=== PATIENT | female | born 1980 | race Caucasian/White ===

== ENCOUNTER 2020-01-24 19:34 | Emergency (ER) | payer MEDICAID ==
[~2020-01-24] VITALS: Ht 152.4 cm; Wt 70.3 kg
[~2020-01-24 19:34] MED LIST: ALBU0.0912; LORA-476
--- NOTE | 2020-01-24 19:37 | NUR ---
PT BIBA BLS. TAKEN TO BED 7. [place] [employer] AT BEDSIDE WRITING [id number] HOLD
[2020-01-24 19:42] VITALS: BP 136/80
--- NOTE | 2020-01-24 20:00 | NUR ---
PT SITTING ON [employer] AOX4 WITH BELONGINGS IN HAND. TEXTING ON HER PHONE. PT BEINGMONITORED AT BEDSIDE FOR SAFTEY. V/S FOLLOWS: T 98.6 P 105 R 16 B/P 129/82 02 100% ON ROOM AIR.
[2020-01-24 20:17] LABS: BASOPHILS % (AUTO) 0.5 % (0.0-2.0); EOSINOPHILS # (AUTO) 0.1 K/uL (0-0.4); EOSINOPHILS % (AUTO) 1.3 % (0.0-4.0); HEMATOCRIT 37.9 % (36-48); HEMOGLOBIN 12.6 g/dL (12.0-16.0); LYMPHOCYTES # (AUTO) 1.9 K/uL (2.5-16.5); LYMPHOCYTES % (AUTO) 25.1 % (20.5-51.1); MEAN CORPUSCULAR HEMOGLOBIN 29 pg (27-31); MEAN CORPUSCULAR HGB CONC 33 g/dL (33-37); MONOCYTES # (AUTO) 0.6 K/uL (0.8-1.0); MONOCYTES % (AUTO) 7.9 % (1.7-9.3); NEUTROPHILS # (AUTO) 4.9 K/uL (1.8-7.7); NEUTROPHILS % (AUTO) 65.2 % (42.2-75.2); PLATELET COUNT (AUTO) 307 K/uL (140-450); RED CELL DISTRIBUTION WIDTH 13.6 % (11.6-13.7); WHITE BLOOD COUNT (AUTO) 7.4 K/uL (4.8-10.8)
[2020-01-24 20:48] LABS: ALBUMIN 3.9 g/dL (3.4-5.0); ANION GAP 14.5 (8-16); ASPARTATE AMINOTRANSFERASE 20 U/L (15-37); CARBON DIOXIDE 25.4 mmol/L (21-32); CHLORIDE 105 mmol/L (98-107); CREATININE 0.7 mg/dL (0.6-1.3); GFR ARICAN-AMERICAN 120 mL/min (>90); GLUCOSE 103 mg/dL (74-106); POTASSIUM 3.9 mmol/L (3.5-5.1); SODIUM SERUM 141 mmol/L (136-145); TOTAL BILIRUBIN 0.7 mg/dL (0.0-1.0); UREA NITROGEN, BLOOD 23 mg/dL (7-18)
[2020-01-24] MEDS ORDERED: KETOROLAC 30 MG/ML VIAL IM ONE (21:30)
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
--- NOTE | 2020-01-24 22:00 | NUR ---
PT RECEIVED ORDERED TORADOL FOR 8 FOR LEFT EYE AREA. PT ALSO GIVEN ICE PACK FOR SWELLING AND SORENESS OF LEFT SIDE OF FACE.
--- NOTE | 2020-01-24 22:13 | NUR ---
TELEPSYCH INITIATED PER DR. BOOKER
[2020-01-24 22:31] LABS: BARBITURATE, URINE NEGATIVE ng/ml (NEG <=200); BENZODIAZEPINE, URINE NEGATIVE ng/mL (NEG <=200); CANNABINOID, URINE NEGATIVE ng/mL (NEG <=50); COCAINE, URINE NEGATIVE ng/mL (NEG <=300); OPIATE, URINE NEGATIVE ng/mL (NEG <=2000); PHENCYCLIDINE SCREEN,URINE NEGATIVE ng/mL (NEG <=25)
[2020-01-24 22:33] LABS: APPEARANCE,URINE CLOUDY (CLEAR); BILIRUBIN,URINE 1+ (NEGATIVE); BLOOD, URINE NEGATIVE (NEGATIVE); COLOR,URINE YELLOW (YELLOW); LEUKOCYTE ESTERASE ,URINE NEGATIVE (NEGATIVE); NITRITE, URINE NEGATIVE (NEGATIVE); UGLUCOSE NEGATIVE (NEGATIVE)
[2020-01-24 22:49] LABS: RBC,URINE 0-5 /HPF (0-5); WBC,URINE 0-5 /HPF (0-5)
--- NOTE | 2020-01-24 22:58 | NUR ---
TELEPSYCH DOCTOR SPEAKING WITH PATIENT VIA REMOTE COMMUNICATION
--- NOTE | 2020-01-24 23:00 | NUR ---
PT PROVIDED URINE SAMPLE ORDERED.
--- NOTE | 2020-01-25 00:15 | NUR ---
PT IN BED RESTING POSITIVE EFFECT OF TORADOL NOTED. V/S FOLLOWS: T 97.0 P 88 R 17 B/P 101/62 02 97% ON ROOM AIR.
--- NOTE | 2020-01-25 02:02 | NUR ---
Packet received for placement
--- NOTE | 2020-01-25 04:30 | NUR ---
PT IN BED ASLEEP 1:1 AT BEDSIDE, NO S/S OF DILLON OR DISTRES NOTED V/S FOLLOWS: T 98.3 P 70 R 16 B/P 99/68 02 99% ON ROOM AIR.
[2020-01-25 07:30] VITALS: BP 99/68
--- NOTE | 2020-01-25 07:30 | NUR ---
Patient to be transferred to [facility]. Is being transferred due to Psych. Receiving facility has accepting physician and available space. ER physician has signed transfer form. Patient or responsible libertarian has agreed to transfer and signed form. Patient belongings inventoried and will be sent with patient. Copy of nursing notes, lab reports, EKG, Physicians Orders and X-rays to be sent with patient. Report called to Patrick at receiving facility. [facility] ambulance service has been called for transfer.
--- NOTE | 2020-01-25 07:32 | NUR ---
report given to alyson conley from [facility]. pt picked up by [facility] in stable condition.
== END 2020-01-25 07:32 ==
LOC: MED 19:34
DX: S05.12XA Contusion of eyeball and orbital tissues, left eye, initial encounter (principal); S61.512A Laceration without foreign body of left wrist, initial encounter; R45.851 Suicidal ideations; F41.9 Anxiety disorder, unspecified; F32.9 Major depressive disorder, single episode, unspecified; J45.909 Unspecified asthma, uncomplicated; Z79.899 Other long term (current) drug therapy; X58.XXXA Exposure to other specified factors, initial encounter; Y93.89 Activity, other specified; Y92.89 Other specified places as the place of occurrence of the external cause; Y99.8 Other external cause status
CPT/HCPCS: 80053; 80305; 81001; 81025; 85025; 87426; 93005; 96372; 99291; G0482; J1885; U0003; 99284

== ENCOUNTER 2020-02-04 06:15 | Emergency (ER) | payer MEDICAID ==
[~2020-02-04] VITALS: Ht 152.4 cm; Wt 70.8 kg
[2020-02-04 06:21] VITALS: BP 113/82
[2020-02-04 06:26] VITALS: BP 156/100
--- NOTE | 2020-02-04 06:31 | NUR ---
39 YO F BIB SELF WITH C/C OF HIP PAIN 11/01 THAT STARTED ABOUT 2 HRS AGO. BEGAN WITH CRAMPS AND RADIATED TO HIPS PAIN. PT STATED IT FEELS LIKE A ANTHONY AND SQUEEZING. PT DENIED NUMBNESS AND TINGLING. PT STATED SHE TOOK MOTRIN AROUND 0300 WITH NO RELIEF. PT HAD A POPPING SENSATION PRIOR TO ME WALKING IN AND SAID IT FELT MUCH BETTER. PT DENIES PAIN MANAGEMENT AT THIS TIME. BED LOCKED IN LOWEST POSITION AND SIDE RAILS X1. HX: ASTHMA RX: LEXAPRO NKA
--- NOTE | 2020-02-04 07:07 | NUR ---
REPORT GIVEN TO GOPI NICHOLAS. TRANSFER OF CARE AT THIS TIME.
--- NOTE | 2020-02-04 07:20 | NUR ---
XR at the pt bedside.
[2020-02-04 07:25] VITALS: BP 157/88
--- NOTE | 2020-02-04 07:25 | NUR ---
Pt went out to car.
--- NOTE | 2020-02-04 07:25 | NUR ---
PATIENT LEFT WITHOUT BEING SEEN BY DR. Ty. NO FURTHER CARE PROVIDED FOR PATIENT.
== END 2020-02-04 07:25 | disposition left against medical advice (07) ==
LOC: MED 06:15
DX: M25.559 Pain in unspecified hip (principal); J45.909 Unspecified asthma, uncomplicated; Z53.21 Procedure and treatment not carried out due to patient leaving prior to being seen by health care provider
CPT/HCPCS: 81025

== ENCOUNTER 2021-01-27 18:40 | Emergency (ER) | payer MEDICAID ==
[~2021-01-27] VITALS: Ht 152.4 cm; Wt 81.6 kg
[2021-01-27 18:49] VITALS: BP 152/90
[2021-01-27 19:06] VITALS: BP 152/90
--- NOTE | 2021-01-27 19:06 | NUR ---
NO NURSING INTERVENTIONS GIVEN. NO NEED FOR COMPLETE ASSESSMENT
--- NOTE | 2021-01-27 19:07 | NUR ---
PATIENT BIB [facility] [employer]. PATIENT EXAMINED BY DR. CERON. PATIENT MEDICALLY CLEARED AND RELEASED IN CUSTODY IN STABLE CONDITION. ORIGINAL PRE-BOOK FORM GIVEN TO OFFICER HALLIE.
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
== END 2021-01-27 19:08 ==
LOC: MED 18:40
DX: J45.909 Unspecified asthma, uncomplicated (principal); Z02.89 Encounter for other administrative examinations; Z79.899 Other long term (current) drug therapy
CPT/HCPCS: 99283

== ENCOUNTER 2021-02-05 04:32 | Emergency (ER) | payer MEDICAID ==
[~2021-02-05] VITALS: Ht 152.4 cm; Wt 86.2 kg
[2021-02-05 04:49] VITALS: BP 156/88
[2021-02-05] MEDS ORDERED: KETOROLAC 60 MG/2 ML VIAL IM ONE (05:10)
[2021-02-05] MEDS ORDERED: MORPHINE SULFATE 4 MG/ML SYR IM ONE (05:10)
--- NOTE | 2021-02-05 05:30 | NUR ---
PATIENT PRESENTS TO ED WITH BACK PAIN. PT STATES "I HAVE THE PAIN HERE AND I HEARD A POP AND SAW A FLASH OF LIGHT." PT POINT TO HER LOW MID BACK. MOVES ALL EXTREMETIES WITH DENIES N/V/D; SKIN IS NORMAL FOR ETHNICITY/WARM/DRY; AAOX4 WITH EVEN AND STEADY GAIT; LUNGS CBTA; HR EVEN AND REGULAR; PT DENIES ANY FEVER, CP, SOB, OR COUGH AT THIS TIME; PATIENT STATES PAIN OF 5/10 AT THIS TIME; VS WITHIN DEFINED LIMITS; PATIENT POSITIONED FOR COMFORT; HOB ELEVATED; BEDRAILS UP X2; BED IN LOW POSITION. ER MD AT BEDSIDE AT THIS TIME
--- NOTE | 2021-02-05 05:35 | NUR ---
PT TO RADIOLOGY
--- NOTE | 2021-02-05 05:48 | NUR ---
Dr. Padgett examining patient.
--- NOTE | 2021-02-05 05:48 | NUR ---
PT RETURN FROM CT
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
== END 2021-02-05 06:30 | disposition left against medical advice (07) ==
LOC: MED 04:32
DX: M47.896 Other spondylosis, lumbar region (principal); J45.909 Unspecified asthma, uncomplicated; F17.210 Nicotine dependence, cigarettes, uncomplicated; F12.90 Cannabis use, unspecified, uncomplicated; Z79.899 Other long term (current) drug therapy; Z98.890 Other specified postprocedural states
CPT/HCPCS: 72131; 96372; 99284; J1885; J2270

== ENCOUNTER 2021-06-30 20:47 | Emergency (ER) | payer OTHER, MEDICAID ==
[~2021-06-30] VITALS: Ht 152.4 cm; Wt 79.4 kg
[2021-06-30 21:13] VITALS: BP 154/89
--- NOTE | 2021-06-30 21:18 | NUR ---
PT TAKEN TO ER BED 04 VIA WC.
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
[2021-06-30] MEDS ORDERED: fentaNYL citrate 0.05 MG/ML VIAL IVP ONE (22:00)
--- NOTE | 2021-06-30 22:12 | NUR ---
18G IV ESTABLISHED TO LT AC. BLOOD DRAWN VIA IV START AND WALKED TO LAB.
--- NOTE | 2021-06-30 22:15 | NUR ---
CONSENT FOR CT CONTRAST SIGNED.
--- NOTE | 2021-06-30 22:20 | NUR ---
XRAY AT BEDSIDE
[2021-06-30 22:32] LABS: BASOPHILS % (AUTO) 0.3 % (0.0-2.0); EOSINOPHILS # (AUTO) 0.1 K/uL (0-0.4); EOSINOPHILS % (AUTO) 0.8 % (0.0-4.0); HEMATOCRIT 39.3 % (36-48); HEMOGLOBIN 13.2 g/dL (12.0-16.0); LYMPHOCYTES # (AUTO) 1.4 K/uL (2.5-16.5); LYMPHOCYTES % (AUTO) 13.2 % (20.5-51.1); MEAN CORPUSCULAR HEMOGLOBIN 28 pg (27-31); MEAN CORPUSCULAR HGB CONC 34 g/dL (33-37); MEAN CORPUSCULAR VOLUME 84.4 fL (80-94); MONOCYTES # (AUTO) 0.6 K/uL (0.8-1.0); NEUTROPHILS # (AUTO) 8.4 K/uL (1.8-7.7); NEUTROPHILS % (AUTO) 79.7 % (42.2-75.2); PLATELET COUNT (AUTO) 256 K/uL (140-450); RED BLOOD CELL COUNT(AUTO) 4.65 MIL/uL (4.20-5.40); RED CELL DISTRIBUTION WIDTH 14.2 % (11.6-13.7); WHITE BLOOD COUNT (AUTO) 10.6 K/uL (4.8-10.8)
[2021-06-30 22:51] LABS: ALBUMIN 3.6 g/dL (3.4-5.0); ANION GAP 12.7 (8-16); CREATININE 0.7 mg/dL (0.6-1.3); POTASSIUM 3.7 mmol/L (3.5-5.1); TOTAL BILIRUBIN 0.3 mg/dL (0.0-1.0)
--- NOTE | 2021-06-30 23:12 | NUR ---
PT TAKEN TO CT VIA LOLY
--- NOTE | 2021-07-01 00:59 | NUR ---
covering primary nurse for lunch relief. pt seen with eyes closed visible chest rise and fall noted. pt does not endorse pain at this time.
--- NOTE | 2021-07-01 01:21 | NUR ---
PT PROVIDED URINE SAMPLE . WALKED OVER TO LAB
--- NOTE | 2021-07-01 01:35 | NUR ---
PT C/O THAT CT IMAGING IS TAKING TOO LONG . PT EXPRESSES DESIRE TO LEAVE. SHE SAYS SHE JUST WANTS TO GO HOME. ERMD MADE AWARE
[2021-07-01 01:36] LABS: APPEARANCE,URINE CLEAR (CLEAR); BILIRUBIN,URINE NEGATIVE (NEGATIVE); BLOOD, URINE NEGATIVE (NEGATIVE); COLOR,URINE YELLOW (YELLOW); LEUKOCYTE ESTERASE ,URINE NEGATIVE (NEGATIVE); NITRITE, URINE NEGATIVE (NEGATIVE); UGLUCOSE NEGATIVE (NEGATIVE)
[2021-07-01] MEDS ORDERED: ACETAMINOPHEN 325 MG TAB PO ONE (01:45)
[2021-07-01] MEDS ORDERED: KETOROLAC 30 MG/ML VIAL IVP ONE (01:45)
--- NOTE | 2021-07-01 02:45 | NUR ---
Patient appears to be resting comfortably in bed. Vital Signs within normal limits. Respirations even and unlabored.
--- NOTE | 2021-07-01 04:01 | NUR ---
Patient appears to be resting comfortably in bed. Vital Signs within normal limits. Respirations even and unlabored.
[2021-07-01] MEDS ORDERED: CYCL-711 PO (05:03)
[2021-07-01] MEDS ORDERED: NAPR-54 PO (05:03)
[2021-07-01 05:25] VITALS: BP 130/81
--- NOTE | 2021-07-01 05:25 | NUR ---
Patient discharged with v/s stable. Written and verbal after care instructions given and explained. Patient alert, oriented and verbalized understanding of instructions. Ambulatory with steady gait. All questions addressed prior to discharge. ID band removed. Patient advised to follow up with PMD. Rx of FLEXERIL AND NAPROSYN given. Opportunity to ask questions provided and answered.
--- NOTE | 2021-07-01 05:41 | NUR ---
The patient's care was reviewed and supervised by Fe Seth RN.
== END 2021-07-01 05:25 | disposition home or self-care (01) ==
LOC: MED 20:47
DX: S80.01XA Contusion of right knee, initial encounter (principal); S70.02XA Contusion of left hip, initial encounter; S30.0XXA Contusion of lower back and pelvis, initial encounter; S39.91XA Unspecified injury of abdomen, initial encounter; V29.49XA Motorcycle driver injured in collision with other motor vehicles in traffic accident, initial encounter; Y93.89 Activity, other specified; Y92.89 Other specified places as the place of occurrence of the external cause; Y99.8 Other external cause status
CPT/HCPCS: 36415; 73030; 73562; 73590; 74177; 80053; 81003; 84703; 85025; 96374; 96375; 99285; J1885; J3010; Q0092; Q9967; 81002

== ENCOUNTER 2022-02-22 08:21 | Emergency (ER) | payer MEDICAID, OTHER ==
[~2022-02-22] VITALS: Ht 152.4 cm; Wt 82.1 kg
[~2022-02-22 08:21] MED LIST changes: +CYCL-711 PO; +NAPR-54 PO
[2022-02-22 08:27] VITALS: BP 161/89
--- NOTE | 2022-02-22 08:31 | NUR ---
FLU AND STACIA SWABS COLLECTED
[2022-02-22] MEDS ORDERED: IBUP-2213 PO (08:46)
[2022-02-22] MEDS ORDERED: BPM/118S31 PO (08:46)
[2022-02-22] MEDS ORDERED: AMOX500C25 PO (08:46)
--- NOTE | 2022-02-22 08:49 | NUR ---
41/F PRESENTS TO ED WITH C/O BODY ACHES, CHILLS, COUGH SINCE YESTERDAY, REPORTS TAKING IBUPROFEN WITH NO RELIEF. DENIES RECENT SICK CONTACTS.
--- NOTE | 2022-02-22 08:53 | NUR ---
Patient discharged with v/s stable. Written and verbal after care instructions given and explained. Patient alert, oriented and verbalized understanding of instructions. Ambulatory with steady gait. All questions addressed prior to discharge. ID band removed. Patient advised to follow up with PMD. Rx of BROMFED,IBUPROFEN AND AMOXICILLIN given. Patient educated on indication of medication including possible reaction and side effects. Opportunity to ask questions provided and answered.
== END 2022-02-22 08:53 | disposition home or self-care (01) ==
LOC: MED 08:21
DX: U07.1 COVID-19 (principal); J45.909 Unspecified asthma, uncomplicated; Z79.899 Other long term (current) drug therapy
CPT/HCPCS: 99283

== ENCOUNTER 2022-07-25 06:50 | Emergency (ER) | payer MEDICAID ==
[~2022-07-25] VITALS: Ht 152.4 cm; Wt 86.2 kg
[~2022-07-25 06:50] MED LIST changes: +AMOX500C25 PO; +BPM/118S31 PO; +IBUP-2213 PO
[2022-07-25 07:15] VITALS: BP 141/89
--- NOTE | 2022-07-25 07:34 | NUR ---
ATTEMPTED TO BRING PT BACK, NOT FOUND IN LOBBY/OUTSIDE
--- NOTE | 2022-07-25 07:53 | NUR ---
made call out to lobby and outside, no answer
[2022-07-25] MEDS ORDERED: TETRACAINE HCL/PF 0.5% OPTH 4 ML BTL OP ONE (07:55)
[2022-07-25] MEDS ORDERED: FLUORESCEIN OPTH STRIP 1 MG OP ONE (07:55)
[2022-07-25] MEDS ORDERED: TOMOMETER 1 DEV DEV MC ONE (08:34)
[2022-07-25] MEDS ORDERED: DIPH25TA53 PO (09:04)
[2022-07-25] MEDS ORDERED: ELIMC TP (09:04)
[2022-07-25] MEDS ORDERED: OLOP2.5D7 RIGHT EYE (09:13)
[2022-07-25] MEDS ORDERED: POLY15SO48 RIGHT EYE (09:13)
[2022-07-25 09:25] VITALS: BP 140/75
--- NOTE | 2022-07-25 09:26 | NUR ---
Patient discharged with v/s stable. Written and verbal after care instructions given and explained. Patient alert, oriented and verbalized understanding of instructions. Ambulatory with steady gait. All questions addressed prior to discharge. ID band removed. Patient advised to follow up with PMD. Rx of benadryl, permethrin, olopatadine, polyvinyl alcohol given. Patient educated on indication of medication including possible reaction and side effects. Opportunity to ask questions provided and answered.
== END 2022-07-25 09:25 | disposition home or self-care (01) ==
LOC: MED 06:50
DX: H10.211 Acute toxic conjunctivitis, right eye (principal); B85.1 Pediculosis due to Pediculus humanus corporis; F15.90 Other stimulant use, unspecified, uncomplicated; J45.909 Unspecified asthma, uncomplicated; F17.210 Nicotine dependence, cigarettes, uncomplicated; Z71.6 Tobacco abuse counseling; Z98.890 Other specified postprocedural states; Z98.51 Tubal ligation status; Z79.899 Other long term (current) drug therapy; Z79.1 Long term (current) use of non-steroidal anti-inflammatories (NSAID); Z79.2 Long term (current) use of antibiotics
CPT/HCPCS: 99283

== ENCOUNTER 2023-03-17 04:47 | Emergency (ER) | payer SELFPAY ==
[~2023-03-17] VITALS: Ht 154.9 cm; Wt 86.2 kg
[~2023-03-17 04:47] MED LIST changes: -BPM/118S31 PO; +BROM118S70 PO; +DIPH25TA53 PO; +ELIMC TP; +OLOP2.5D7 RIGHT EYE; +POLY15SO48 RIGHT EYE
[2023-03-17 04:55] VITALS: BP 151/90; PULSE 96; RESP 16; TEMP 98; O2SAT 100
[2023-03-17 05:36] VITALS: BP 151/90; PULSE 96; RESP 16; TEMP 98; O2SAT 100
== END 2023-03-17 05:28 | disposition left against medical advice (07) ==
LOC: MED 04:47
DX: M54.50 Low back pain, unspecified (principal); Z53.21 Procedure and treatment not carried out due to patient leaving prior to being seen by health care provider
CPT/HCPCS: 99281

== ENCOUNTER 2023-08-20 10:34 | Emergency (ER) | payer MEDICAID ==
[~2023-08-20] VITALS: Ht 152.4 cm; Wt 81.6 kg
[~2023-08-20 10:34] MED LIST changes: +NAPR-337 PO; -NAPR-54 PO
[2023-08-20 11:10] VITALS: BP 175/98; PULSE 110; RESP 20; TEMP 98.7; O2SAT 99
[2023-08-20] MEDS ORDERED: CYCL-711 PO (12:29)
[2023-08-20] MEDS ORDERED: LID5T TP (12:29)
[2023-08-20] MEDS ORDERED: IBUP-2213 PO (12:29)
[2023-08-20 12:41] VITALS: BP 162/92; PULSE 93; RESP 20; TEMP 97.3; O2SAT 99
[2023-08-20] MEDS: LIDOCAINE 5% 1 EA PATCH TP ONE (12:47)
[2023-08-20] MEDS: KETOROLAC 30 MG/ML VIAL IM ONE (12:48)
== END 2023-08-20 13:02 | disposition home or self-care (01) ==
LOC: MED 10:34
DX: S39.012A Strain of muscle, fascia and tendon of lower back, initial encounter (principal); J45.909 Unspecified asthma, uncomplicated; Z79.1 Long term (current) use of non-steroidal anti-inflammatories (NSAID); Z79.2 Long term (current) use of antibiotics; Z79.899 Other long term (current) drug therapy; W22.8XXA Striking against or struck by other objects, initial encounter; Y93.89 Activity, other specified; Y92.811 Bus as the place of occurrence of the external cause; Y99.8 Other external cause status
CPT/HCPCS: 81025; 96372; 99283; J1885